=== PATIENT | female | born 1965 | race Caucasian/White ===

== ENCOUNTER 2016-03-16 15:34 | Emergency (ER) ==
[2016-03-16 15:51] VITALS: BP 127/86
[2016-03-16 16:26] LABS: URINE MICRO REVIEW NEEDED? NO; URINE SOURCE CLEAN CATCH
[2016-03-16 16:31] LABS: AGAP 17; ALBUMIN 4.3 g/dL (3.5-5.0); ALKALINE PHOSPHATASE 53 U/L (32-104); AMYLASE 43 U/L (20-200); BUN 13 mg/dL (8-22); CALCIUM 8.8 mg/dL (8.8-10.2); CHLORIDE 101 mmol/L (98-107); COSMO 275; GOT 18 U/L (10-30); GPT 23 U/L (10-36); LIPASE 22 U/L (13-60); POTASSIUM 3.8 mmol/L (3.5-5.1); SODIUM 137 mmol/L (136-145); TCO2 19 mmol/L (25-35); TOTAL BILIRUBIN 0.47 mg/dL (0.20-1.00)
[2016-03-16 16:37] LABS: BILIRUBIN URINE NEGATIVE (NEGATIVE); BLOOD URINE MODERATE (NEGATIVE); COLOR YELLOW; GLUCOSE URINE NEGATIVE (NEGATIVE); LEUKOCYTES URINE NEGATIVE (NEGATIVE); NITRITE URINE NEGATIVE (NEGATIVE); PH URINE 5.5; PROTEIN URINE 30 mg/dL (NEGATIVE); SP GRAVITY URINE 1.034; TURBIDITY URINE HAZY (CLEAR); UR EPITHELIAL CELLS >10 /HPF (<10); URINE BACTERIA 3+ /HPF; URINE CULTURE NEEDED? YES; UROBILINOGEN URINE NORMAL (NORMAL)
[2016-03-16 16:39] LABS: BASO% 0.2 % (0.0-0.8); EOS# 0.06 X1000 (0.0-0.7); EOS% 0.9 % (0.0-10.0); HEMATOCRIT 43.2 % (37.0-47.0); HEMOGLOBIN 14.8 g/dL (12.0-16.0); LYMPH# 0.29 X1000 (1.2-3.4); LYMPH% 4.5 % (20.5-51.1); MANUAL DIFF NEEDED? NO; MCH 31.5 PG (27-31); MCHC 34.3 g/dL (33-37); MCV 91.9 FL (81-99); MONO# 0.27 X1000 (0.11-0.59); MONO% 4.2 % (1.7-9.3); MPV 9.4 FL (7.4-10.4); NEUT% 90.2 % (42.2-75.2); PLT 245 X1000 (130-400)
--- NOTE | 2016-03-16 16:55 | PROVIDER DOCUMENTATION ---
HPI-General Adult - General Chief Complaint: N/V/D Stated Complaint: FLU LIKE SX Time Seen by Provider: 03/16/16 16:30 Source: patient Allergies/Adverse Reactions: Patient Allergies Allergy/AdvReac Type Severity Reaction Status Date / Time Penicillins Allergy HIVES Verified 08/12/15 10:18 PCE AdvReac NAUSEA/VOMI Uncoded 08/12/15 10:18 TING Home Medications: Cetirizine HCl [Zyrtec] 10 mg PO DAILY 09/28/14 Methocarbamol [Robaxin-750] 750 mg PO Q4-6H PRN PRN 08/11/15 - History of Present Illness -Gen Adult Nature of Presenting Problems: 50 y/o WF c/o abdominal pain, nausea, vomiting, and diarrhea for 2 days. Subjective fevers and chills. Reports generalized abdominal pain from having diarrhea. Sister sick with the same thing. Pain aching, nonradiating, worse before she has a BM. Has had poor appetite. Review of Systems - Adult - REVIEW OF SYSTEMS - ADULT Constitutional: reports: see HPI, chills, fever, fatique Eyes: reports: no symptoms reported. denies: decreased vision, blurred vision, double vision, eye pain Ears, Nose, Mouth & Throat: reports: no symptoms reported. denies: ear pain, nose pain, throat pain Cardiovascular: reports: no symptoms reported. denies: chest pain, irregular heart rate, palpitations Respiratory: reports: no symptoms reported. denies: cough, shortness of breath , wheezing Gastrointestinal: reports: see HPI, abdominal pain, diarrhea, nausea, poor appetite, vomiting Genitourinary: reports: no symptoms reported. denies: dysuria, discharge, frequency, incontinence Musculoskeletal: reports: see HPI, muscle aches. denies: bone pain, back pain Integumentary: reports: no symptoms reported. denies: rash Neurological: reports: no symptoms reported. denies: headache/migraines Psychiatric: reports: no symptoms reported Endocrine: reports: no symptoms reported Hematologic/Lymphatic: reports: no symptoms reported Allergic/Immunologic: reports: no symptoms reported All Other Systems: Reviewed and Negative Past History - Adult - PAST MEDICAL HISTORY-ADULT Review of Records: reports: Old Records Reviewed, Nursing Assessment Review, Medications Reviewed, Social history reviewed & non-contributory. Major Childhood Illnesses: reports: denies history Cardiovascular: reports: denies history Respiratory: reports: denies history Gastrointestinal: reports: denies history Genitourinary: reports: denies history Musculoskeletal: reports: denies history Neurological: reports: denies history Endocrine/Immune: reports: denies history Other Conditions: reports: denies history - PRIOR SURGERIES/PROCEDURES Surgical/Procedure History: reports: hysterectomy, BTL - IMMUNIZATION STATUS Childhood Immunizations: See Nurse Assessment Flu Vaccine: See Nurse Assessment - FAMILY HISTORY Family History: reviewed, not pertinent - SOCIAL HISTORY Smoking: quit greater than 1 year Substance Use: none/never Alcohol Use Frequency: never Physical Exam-General - PHYSICAL EXAM-ADULT Initial Vital Signs Reviewed: Yes - CONSTITUTIONAL General Appearance: appears well, alert, no apparent distress - EYES Eyes: PERRL/EOMI, pink conjunctivae - HEAD, EARS, NOSE, MOUTH & THROAT HENMT: normocephalic/atraumatic, moist mucous membranes, normal ENT inspection, TMs normal, pharynx normal. negative: pharyngeal erythema, tonsillar exudate - NECK Neck: non-tender, full range of motion, supple, normal inspection. negative: lymphadenopathy - RESPIRATORY Respiratory: chest non-tender, lungs clear, normal breath sounds, no pleuratic chest pain, no respiratory distress, no accessory muscle use. negative: respiratory distress, decreased breath sounds, accessory muscle use, crackles, rales, rhonchi, wheezing - CARDIOVASCULAR Cardiovascular: normal peripheral pulses, regular rate, rhythm, no edema, no gallop, no murmur - GASTROINTESTINAL (ABDOMEN) Abdominal Exam: normal bowel sounds, soft, no organomegaly, no pulsatile mass, tenderness (generalized). negative: abdominal bruit, abnormal bowel sounds, distended, guarding, rigid, rebound - LYMPHATIC Lymphatic: no adenopathy - MUSCULOSKELETAL Back Exam: normal inspection, no CVA tenderness. negative: CVA tenderness Extremity: normal range of motion, non-tender, normal gait, normal inspection - SKIN Integumentary: normal color, normal turgor, warm/dry - NEUROLOGIC Neurologic: grossly normal, no motor/sensory deficits - PSYCHIATRIC Psych/Mental Status: normal mood/affect, normal thought content, normal thought process, oriented x 3 Progress - PLAN OF CARE/RESULTS Progress/Plan/Lab Results: Vital Signs Temp Pulse Resp BP Pulse Ox 03/16/16 15:48 98.7 F 121 H 20 127/86 100 Penicillins Allergy (Verified 08/12/15 10:18) HIVES PCE Adverse Reaction (Uncoded 08/12/15 10:18) NAUSEA/VOMITING Cetirizine HCl [Zyrtec] 10 mg PO DAILY 09/28/14 Cyclobenzaprine [Flexeril] 10 mg PO TID #20 tablet 08/11/15 Methocarbamol [Robaxin-750] 750 mg PO Q4-6H PRN PRN 08/11/15 Prednisone 10 mg PO DIRECTED #9 tablet 08/11/15 Hydrocodone/APAP 7.5 mg/325 mg [[place]-7.5] 1 each PO Q6H PRN PRN #14 tablet Dietary Diet NPO Start TueMar 16 1552 I&O 03/15/16 03/16/16 03/17/16 06:59 06:59 06:59 Output Total 30 Balance -30 Laboratory 03/16/16 03/16/16 03/16/16 16:20 15:57 15:57 WBC 6.43 RBC 4.70 Hgb 14.8 Hct 43.2 MCV 91.9 MCH 31.5 H MCHC 34.3 RDW Std Deviation 12.3 Plt Count 245 MPV 9.4 Immature Gran % (Auto) 0.0 Neut % (Auto) 90.2 H Lymph % (Auto) 4.5 L [place] % (Auto) 4.2 Eos % (Auto) 0.9 Baso % (Auto) 0.2 Immature Gran # (Auto) 0.00 Neut # (Auto) 5.80 Lymph # (Auto) 0.29 L [place] # (Auto) 0.27 Eos # (Auto) 0.06 Baso # (Auto) 0.01 Sodium 137 Potassium 3.8 Chloride 101 Carbon Dioxide 19 L Anion Gap 17 BUN 13 Creatinine 0.7 Estimated GFR/1.73 m2 > 60 BUN/Creatinine Ratio 19 Glucose 121 H Calculated Osmolality 275 Calcium 8.8 Total Bilirubin 0.47 AST 18 ALT 23 Alkaline Phosphatase 53 Total Protein 7.0 Albumin 4.3 Globulin 2.7 Albumin/Globulin Ratio 1.6 Amylase 43 Lipase 22 Urine Source CLEAN CATCH Urine Color YELLOW Urine Turbidity HAZY Urine pH 5.5 Ur Specific [place] 1.034 Urine Protein 30 A Ur Glucose (Stick) NEGATIVE Ur Ketones (Stick) 10 A Urine Blood MODERATE A Urine Nitrite NEGATIVE Urine Bilirubin NEGATIVE Urobilinogen Dipstick NORMAL Urine Leukocytes NEGATIVE Urine WBC (Auto) 10-20 A Urine RBC (Auto) 10-20 A U Epithel Cells (Auto) >10 A Urine Bacteria (Auto) 3+ Orders Category Date Time Status NPO Diet 03/16/16 15:52 Active AMYLASE [CHEM] Stat Lab 03/16/16 15:57 Completed CBC WITH ELECTRONIC DIFF [HEME] Stat Lab 03/16/16 15:57 Completed COMPREHENSIVE METABOLIC PANEL [CHEM] Stat Lab 03/16/16 15:57 Completed INFLUENZA SCREEN A/B Stat Lab 03/16/16 15:50 Completed LIPASE [CHEM] Stat Lab 03/16/16 15:57 Completed URINALYSIS W/POSS RFLX CULT [URINALYSIS] Stat Lab 03/16/16 16:20 Completed URINE CULTURE [RM] Routine Lab 03/16/16 16:57 Received Departure - Departure Time of Disposition Order: 17:30 DIAGNOSIS: Acute UTI, Gastroenteritis Disposition: HOME 01 Certified Medical Emergency: Emergent Condition: Stable Additional Instructions: Follow up with your primary care physician ED Follow Up Instructions: You have been treated by a care provider in the Emergency Department. These instructions are being provided to you so you can have an understanding of how to care for yourself upon discharge. Upon discharge from the Emergency Department, you are responsible for making arrangements for follow-up care by a physician of your choice. Take all prescribed medications as directed. Return to the Emergency Department immediately for any new or worsening symptoms. You may call the Physician Referral phone number at [phone] to obtain a list of Physicians who are taking new patients. Prescriptions: Sulfamethoxazole/Trimethoprim [Bactrim Ds Tablet] 1 each PO BID #10 tablet Dicyclomine [Bentyl] 10 mg PO 4XDAY #30 capsule Ondansetron Odt [Zofran 8Mg Odt] 8 mg PO Q8H PRN PRN #20 tablet PRN Reason: Nausea Attestation - Physician/ Mid-level Attestation Patient care was provided by Mid-level provider (AVIATION TECHNICIAN/PA):: Yes Mid-level provider:: Elsa Anaya Mid-level documentation review:: The Mid-level provider documentation, treatment plan and medical decision making was reviewed by the physician who agrees with all treatment and medical decision making by the MLP.
[2016-03-16] MEDS ORDERED: ZOFRAN ODT PO ONE (17:32)
== END 2016-03-16 17:43 | disposition home or self-care (01) ==
LOC: ED 15:34
DX: N39.0 Urinary tract infection, site not specified (principal); K52.9 Noninfective gastroenteritis and colitis, unspecified; R10.84 Generalized abdominal pain; R11.2 Nausea with vomiting, unspecified; R50.9 Fever, unspecified; R53.83 Other fatigue; R19.7 Diarrhea, unspecified; M79.1 Myalgia; Z87.891 Personal history of nicotine dependence
CPT/HCPCS: 36415; 80053; 81001; 82150; 83690; 85025; 87088; 87804; 99283; S0181